=== PATIENT | female | born 1950 | race Caucasian/White ===

== ENCOUNTER 2017-06-07 15:44 | Observation (INO) | payer OTHER ==
[~2017-06-07] VITALS: Ht 152.4 cm; Wt 59.5 kg
[~2017-06-07 15:44] MED LIST: ATORVASTATIN CA40 MG PO; BUSPAR10 MG PO; DYMISTA NASAL S23 GM BOTH NARES; EFFEXOR XR150 MG PO; EFFEXOR75 MG PO; LO-DOSE ASPIRIN81 M1 PO; MOTRIN IB200 MG PO; MOTRIN400 MG PO; SYNTHROID25 MCG PO; VICKS BABYRUB S50 GM TP
[2017-06-07 16:40] LABS: HEMATOCRIT 35.9 % (36.0-46.0); HEMOGLOBIN 11.9 G/DL (11.9-15.5); MCHC 33.1 G/DL (30.0-36.0); MCV 87.6 FL (83-99); PLATELET COUNT 349 K/uL (156-360); RBC DIS.WIDTH-CV 14.4 % (11.8-14.6); RBC DIS.WIDTH-SD 46.1 % (39-53); WHITE BLOOD COUNT 7.5 K/uL (4.1-10.2)
[2017-06-07 16:57] LABS: CHLORIDE 104 mEq/L (99-109); POTASSIUM 4.1 mEq/L (3.7-5.4); SODIUM 135 mEq/L (136-147)
[2017-06-07 16:59] LABS: GLUCOSE 95 mg/dL (70-99)
[2017-06-07 17:02] LABS: CREATININE 0.8 mg/dL (0.6-1.3); GFR ESTIMATE (CALCULATED) > 59 mL/min/
[2017-06-07 17:03] LABS: UREA NITROGEN (BUN) 9 mg/dL (9-23)
[2017-06-07] MEDS ORDERED: LIPITOR40 MG PO (18:25)
[2017-06-07] MEDS ORDERED: ADULT ASPIRIN R81 MG PO (18:26)
[2017-06-07] MEDS ORDERED: FLUZONE HI180 MCG/08 IM (18:27)
[2017-06-07] MEDS ORDERED: BUSPAR10 MG PO (18:27)
[2017-06-07] MEDS ORDERED: EFFEXOR XR37.5 MG PO (18:27)
[2017-06-07] MEDS ORDERED: FISH OIL 1,0001 EAC7 PO (18:27)
[2017-06-07 20:00] LABS: SERUM ETHYL ALCOHOL < 10 mg/dL
[2017-06-07 20:53] VITALS: BP 134/75
[2017-06-08 00:58] VITALS: BP 101/56
[2017-06-08 01:25] LABS: APPEARANCE CLEAR ((CLEAR)); BILIRUBIN NEGATIVE; BLOOD NEGATIVE; COLOR STRAW ((YELLOW)); GLUCOSE (STRIP) NEGATIVE; KETONES NEGATIVE; LEUKOCYTES TRACE; NITRITE NEGATIVE; PROTEIN (STRIP) NEGATIVE; SPECIFIC GRAVITY 1.006 (1.000-1.030); UROBILINOGEN 0.2 MG/DL (0.2-1.0)
[2017-06-08 01:40] LABS: BACTERIA NONE SEEN /HPF; EPITHELIAL CELLS RARE /HPF; MUCUS NONE SEEN /LPF; RED BLOOD CELLS 0-5 /HPF (0-5); UCUL ADDED? NO; WHITE BLOOD CELLS 0-5 /HPF (0-5)
[2017-06-08 03:16] LABS: BENZODIAZEPINES, URINE SCREEN Negative (200 ng/mL)
[2017-06-08 04:35] VITALS: BP 108/63
[2017-06-08 06:23] LABS: HDL CHOLESTEROL 46 MG/DL (Desirable>=50); LDL CHOLESTEROL 45 mg/dL (Desirable<100); NON-HDL CHOLESTEROL 60 mg/dL (Desirable<160); TOTAL CHOLESTEROL 106 mg/dL (Desirable<200); TRIGLYCERIDES 74 MG/DL (Normal: <150)
[2017-06-08 07:00] VITALS: BP 103/59
[2017-06-08 10:12] LABS: HEMOGLOBIN A1c (GLYCOHEMOGLOB) 5.9 % (Below 5.7)
[2017-06-08 16:07] VITALS: BP 109/74
[2017-06-08 19:03] VITALS: BP 114/64
[2017-06-08 23:31] VITALS: BP 139/63
[2017-06-09 03:58] VITALS: BP 110/58
[2017-06-09 08:15] VITALS: BP 115/60
[2017-06-09] MEDS ORDERED: BUTALB-APAP-CA1 EACH PO (09:07)
== END 2017-06-09 13:00 | disposition home or self-care (01) ==
LOC: EME 15:44 → 5WEST 19:26 → EDOF 19:26 → ENRESERV 19:27 → 5WEST 20:49
PROVIDERS: Emergency Medicine; Physician Assistant Medical
DX: R47.81 Slurred speech (principal); R51 Headache; R42 Dizziness and giddiness; Z86.73 Personal history of transient ischemic attack (TIA), and cerebral infarction without residual deficits; I71.4 Abdominal aortic aneurysm, without rupture; G89.29 Other chronic pain; M54.5 Low back pain; M19.012 Primary osteoarthritis, left shoulder; M19.011 Primary osteoarthritis, right shoulder; E03.9 Hypothyroidism, unspecified; F41.9 Anxiety disorder, unspecified; G43.909 Migraine, unspecified, not intractable, without status migrainosus; R45.4 Irritability and anger; Z79.82 Long term (current) use of aspirin; Z90.49 Acquired absence of other specified parts of digestive tract; Z82.49 Family history of ischemic heart disease and other diseases of the circulatory system; Z84.1 Family history of disorders of kidney and ureter; Z88.5 Allergy status to narcotic agent; Z88.8 Allergy status to other drugs, medicaments and biological substances
CPT/HCPCS: 70450; 70551; 71046; 71275; 80048; 80061; 80306 90; 81003; 83036; 85027; 93005; 93306; 93880; 99281; 99285; G0378; G0480; J1650; J7030